=== PATIENT | male | born 1950 | race Caucasian/White ===

== ENCOUNTER 2017-09-18 13:45 | Day surgery (SDC) | payer MEDICARE, BC ==
[2017-09-14 10:58] LABS: BASOPHILS % (AUTO) 0.2 % (0-1); EOSINOPHILS # (AUTO) 0.2 X10'3 (0-0.9); EOSINOPHILS % (AUTO) 2.8 % (0-6); HEMATOCRIT 40.8 % (42.0-52.0); HEMOGLOBIN 14.1 g/dl (14.0-17.9); LYMPHOCYTES # (AUTO) 1.8 X10'3 (1.1-4.8); LYMPHOCYTES % (AUTO) 22.3 % (21-51); MEAN CORPUSCULAR HEMOGLOBIN 32.8 PG (27.0-31.0); MEAN CORPUSCULAR HGB CONC 34.4 % (33.0-36.5); MEAN CORPUSCULAR VOLUME 95.2 FL (78-98); MEAN PLATELET VOLUME 7.4 FL (7.4-10.4); MONOCYTES # (AUTO) 1.4 X10'3 (0-0.9); MONOCYTES % (AUTO) 17.6 % (2-12); NEUTROPHILS # (AUTO) 4.5 X10'3 (1.8-7.7); NEUTROPHILS % (AUTO) 57.1 % (42-75); PLATELET COUNT 233 X10'3 (140-440); RED BLOOD COUNT 4.29 X10'6 (4.70-6.10); RED CELL DISTRIBUTION WIDTH 13.9 % (11.5-14.5); WHITE BLOOD COUNT 7.9 X10'3 (4.5-11.0)
[2017-09-14 11:09] LABS: INR 1.4 INR; PARTIAL THROMBOPLASTIN TIME 46 SECONDS (22-32); PROTHROMBIN TIME 14.7 SECONDS (9.0-12.0)
[2017-09-14 11:17] LABS: ALBUMIN 4.1 G/DL (3.4-5.0); ANION GAP 9 (8-16); BLOOD UREA NITROGEN 24 MG/DL (7-18); BUN/CREATININE RATIO 19.7 (5.4-32.0); CALCIUM 9.1 MG/DL (8.5-10.1); CHLORIDE 102 MMOL/L (99-107); CREATININE 1.22 MG/DL (0.60-1.10); GLUCOSE 100 MG/DL (70-104); SODIUM 140 MMOL/L (135-145); TOTAL CARBON DIOXIDE 29.1 MMOL/L (24-32); eGFR 59 ML/MIN
[~2017-09-18] VITALS: Ht 182.9 cm; Wt 114.1 kg
[2017-09-18] VITALS (12 sets, daily range): BP systolic 93–134; BP diastolic 50–80
[~2017-09-18 13:45] MED LIST: ASPI-611 PO; ATOR40TA72 PO; DABI150C PO; DILT180C PO; METF10002 PO; OLME1TAB18 PO
[2017-09-18] MEDS ORDERED: morphine 10mg/ml inj. IV ONE (14:15)
[2017-09-18] MEDS ORDERED: normal saline 1000ml 1,000 ML IV SCH (14:15)
[2017-09-18] MEDS ORDERED: fentaNYL/PF 50MCG/1 ML 2ML syringe IV ONE (14:15)
[2017-09-18] MEDS ORDERED: MIDAZolam 5mg/ml 2ml vial IV ONE (14:40)
[2017-09-18] MEDS ORDERED: METF500T4 PO (14:47)
[2017-09-18] MEDS ORDERED: OLME1TAB24 PO (14:47)
[2017-09-18] MEDS ORDERED: SPIR25TA3 PO (14:47)
[2017-09-18] MEDS ORDERED: DRON400T2 PO (14:47)
== END 2017-09-18 18:30 | disposition home or self-care (01) ==
LOC: SSTAY O 13:45
PROVIDERS: ATTEND Internal Medicine Interventional Cardiology
DX: I48.0 Paroxysmal atrial fibrillation (principal); I48.3 Typical atrial flutter; I42.8 Other cardiomyopathies; I10 Essential (primary) hypertension; E78.5 Hyperlipidemia, unspecified; E11.9 Type 2 diabetes mellitus without complications; I25.10 Atherosclerotic heart disease of native coronary artery without angina pectoris; F17.291 Nicotine dependence, other tobacco product, in remission; K21.9 Gastro-esophageal reflux disease without esophagitis; N40.0 Benign prostatic hyperplasia without lower urinary tract symptoms; Z72.89 Other problems related to lifestyle; Z79.82 Long term (current) use of aspirin; Z79.84 Long term (current) use of oral hypoglycemic drugs; Z98.890 Other specified postprocedural states; Z79.899 Other long term (current) drug therapy
CPT/HCPCS: 36415; 80048; 82948; 85025; 85610; 85730; 92960; 93005; J2250; J3010; J7030; A4620